=== PATIENT | female | born 1995 | race Caucasian/White ===

== ENCOUNTER 2019-07-19 10:30 | Emergency (ER) | payer OTHER ==
[~2019-07-19] VITALS: Ht 167.6 cm; Wt 54.8 kg
[2019-07-19 10:33] VITALS: BP 127/100
--- NOTE | 2019-07-19 10:55 | NUR ---
Assumed care of patient. C/O SI. Reports recetn divorce. Denies plan or method. Denies HI. Flat affect. Urine sent to lab. One belonging bag locked up at security. Sitter at bedside. Will continue to monitor.
[2019-07-19] MEDS ORDERED: MYLAN PO (10:58)
[2019-07-19 11:36] LABS: ALBUMIN 4.1 g/dL (3.4-5.0); ANION GAP 9 mmol/L (5-15); CALCIUM 8.9 mg/dL (8.5-10.1); CHLORIDE 108 mmol/L (98-107); CREATININE 0.86 mg/dL (0.55-1.02)
[2019-07-19 11:44] LABS: AMPHETAMINE SCREEN, URINE Negative (Negative); BARBITURATE SCREEN, URINE Negative (Negative); BENZODIAZEPINE SCREEN, URINE Negative (Negative); CANNABINOID SCREEN, URINE Negative (Negative); COCAINE SCREEN, URINE Negative (Negative); METHADONE SCREEN, URINE Negative (Negative); OPIATE SCREEN, URINE Negative (Negative)
[2019-07-19 11:44] LABS: SALICYLATE LEVEL < 1.7 mg/dL (2.8-20.0)
--- NOTE | 2019-07-19 11:53 | NUR ---
Patient resting in gurney. Sitter at bedside. Will continue to monitor.
[2019-07-19 12:03] LABS: BASOPHILS # (AUTO) 0.06 x10^3/uL (0-0.1); BASOPHILS % (AUTO) 1 % (0-1); EOSINOPHILS # (AUTO) 0.01 x10^3/uL (0-0.4); EOSINOPHILS % (AUTO) 0 % (1-7); LYMPHOCYTES % (AUTO) 18 % (22-44); MD NO; MEAN CORPUSCULAR HEMOGLOBIN 31.6 pg (27.0-34.8); MEAN CORPUSCULAR HGB CONC 34.3 g/dL (32.4-35.8); MEAN CORPUSCULAR VOLUME 91.9 fL (80-100); MEAN PLATELET VOLUME 8.3 fL (7.4-10.4); MONOCYTES # (AUTO) 0.25 x10^3/uL (0.2-0.8); MONOCYTES % (AUTO) 4 % (2-9); NEUTROPHILS # (AUTO) 4.29 x10^3/uL (1.8-6.8); NEUTROPHILS % (AUTO) 77 % (42-75); PLATELET COUNT 288 x10^3/uL (130-400); RED BLOOD COUNT 4.76 x10^6/uL (3.82-5.3); RED CELL DISTRIBUTION WIDTH 12.6 % (9.6-15.2)
[2019-07-19] MEDS ORDERED: POTASSIUM CHLORIDE 20 MEQ PACKET PO ONE (12:30)
--- NOTE | 2019-07-19 12:47 | NUR ---
REPORT RECEIVED FROM ESTEPHANIA PACHECO.
--- NOTE | 2019-07-19 12:48 | NUR ---
MEAL TRAY ORDERED AT THIS TIME.
--- NOTE | 2019-07-19 12:57 | NUR ---
MEDICATION ORDERED FROM PHARMACY AT THIS TIME.
--- NOTE | 2019-07-19 12:57 | NUR ---
MEAL TRAY PROVIDED AT THIS TIME.
--- NOTE | 2019-07-19 13:38 | NUR ---
PT MEDICATED PER EMAR. PT TOLERATED WELL.
--- NOTE | 2019-07-19 14:54 | NUR ---
PT SLEEPING IN BED. RESPS EVEN AND UNLABORED. ROOM REMAINS SECURE. SITTER MONITORING FROM HALLWAY FOR SAFETY.
--- NOTE | 2019-07-19 16:03 | NUR ---
PT WATCHING TV. RESPS EVEN AND UNLABORED. ROOM REMAINS SECURE. SITTER MONITORING FROM HALLWAY FOR SAFETY.
--- NOTE | 2019-07-19 18:00 | NUR ---
REPORT GIVEN TO WASHINGTON PACHECO. ALL QUESTIONS ANSWERED.
== END 2019-07-19 18:22 ==
LOC: EDSEX 10:30 → ED 13:48
DX: F32.2 Major depressive disorder, single episode, severe without psychotic features (principal); E87.6 Hypokalemia
CPT/HCPCS: 36415; 80048; 80307; 82040; 84703; 85025; 99285

== ENCOUNTER 2019-07-19 17:11 | Inpatient (IN) | payer OTHER ==
[~2019-07-19] VITALS: Ht 167.6 cm; Wt 53.7 kg
[~2019-07-19 17:11] MED LIST: MYLAN PO
[2019-07-19] MEDS ORDERED: POLYETHYLENE GLYCOL 17 GM PACKET PO PRN (18:30)
[2019-07-19] MEDS ORDERED: ONDANSETRON ODT 4 MG PO PRN (18:30)
[2019-07-19] MEDS ORDERED: DOCUSATE 100 MG CAPSULE PO PRN (18:30)
[2019-07-19] MEDS ORDERED: BISACODYL 10 MG SUPP PR PRN (18:30)
[2019-07-19] MEDS ORDERED: MELATONIN 3 MG TABLET PO PRN (18:30)
[2019-07-19] MEDS ORDERED: HYDROXYZINE PAMOATE 50MG CAP PO PRN (18:30)
[2019-07-19] MEDS ORDERED: PLEASE ENTER HEIGHT AND WEIGHT MC SCH (19:00)
[2019-07-19 19:30] LABS: ANION GAP 10 mmol/L (5-15); BASOPHILS # (AUTO) 0.11 x10^3/uL (0-0.1); BASOPHILS % (AUTO) 2 % (0-1); CHLORIDE 109 mmol/L (98-107); CHOLESTEROL, TOTAL 153 mg/dL (140-239); EOSINOPHILS # (AUTO) 0.07 x10^3/uL (0-0.4); EOSINOPHILS % (AUTO) 1 % (1-7); LYMPHOCYTES # (AUTO) 1.93 x10^3/uL (1-3.4); LYMPHOCYTES % (AUTO) 29 % (22-44); MEAN CORPUSCULAR HEMOGLOBIN 31.2 pg (27.0-34.8); MEAN CORPUSCULAR HGB CONC 33.9 g/dL (32.4-35.8); MEAN CORPUSCULAR VOLUME 91.9 fL (80-100); MEAN PLATELET VOLUME 8.3 fL (7.4-10.4); MONOCYTES # (AUTO) 0.41 x10^3/uL (0.2-0.8); MONOCYTES % (AUTO) 6 % (2-9); NEUTROPHILS # (AUTO) 4.16 x10^3/uL (1.8-6.8); NEUTROPHILS % (AUTO) 62 % (42-75); PLATELET COUNT 307 x10^3/uL (130-400); RED BLOOD COUNT 4.71 x10^6/uL (3.82-5.3); RED CELL DISTRIBUTION WIDTH 12.7 % (9.6-15.2); TRIGLYCERIDES 145 mg/dL (50-200); VLDL CHOLESTEROL 29 mg/dL (0-25)
[2019-07-19 19:40] VITALS: BP 124/90
[2019-07-19 19:56] LABS: CHOL/HDL RATIO 3.6; FREE T4 (FREE THYROXINE) 1.75 ng/dL (0.76-1.46); HDL CHOL % 27 % (28-40); HDL CHOLESTEROL (DIRECT) 42 mg/dL (40-60); LDL CHOLESTEROL,CALCULATED 82 mg/dL (54-169)
[2019-07-19 20:00] LABS: MD NO
[2019-07-19 21:12] VITALS: BP 124/85
[2019-07-20 07:22] VITALS: BP 113/78
[2019-07-20] MEDS: ACETAMINOPHEN 325 MG TABLET PO PRN (09:12)
[2019-07-20] MEDS ORDERED: BLISOVI FE PO SCH (10:30)
[2019-07-20] MEDS: FLUOXETINE 10 MG CAP PO SCH (14:25)
[2019-07-20 19:26] VITALS: BP 106/76
[2019-07-21 06:28] LABS: FREE T4 (FREE THYROXINE) 1.71 ng/dL (0.76-1.46)
[2019-07-21 07:31] VITALS: BP 111/79
[2019-07-21] MEDS: [UNRECOGNIZED DRUG - OTHER] HOMEMEDPO SCH (08:12)
[2019-07-21] MEDS: FLUOXETINE 10 MG CAP PO SCH (08:12)
[2019-07-21] MEDS: ACETAMINOPHEN 325 MG TABLET PO PRN ×2 (08:12→14:20)
[2019-07-21 19:55] VITALS: BP 118/84
[2019-07-22 07:49] VITALS: BP 112/75
[2019-07-22] MEDS: ACETAMINOPHEN 325 MG TABLET PO PRN (08:10)
[2019-07-22] MEDS: FLUOXETINE 10 MG CAP PO SCH (08:10)
[2019-07-22] MEDS: [UNRECOGNIZED DRUG - OTHER] HOMEMEDPO SCH (08:11)
[2019-07-22 19:00] VITALS: BP 116/82
[2019-07-23 07:40] VITALS: BP 104/71
[2019-07-23] MEDS: [UNRECOGNIZED DRUG - OTHER] HOMEMEDPO SCH (09:00)
[2019-07-23] MEDS: FLUOXETINE 10 MG CAP PO SCH (09:23)
[2019-07-23] MEDS ORDERED: FLUOXETINE 10 MG CAP PO ONE (13:30)
[2019-07-23 19:43] VITALS: BP 109/74
[2019-07-24 07:30] VITALS: BP 113/79
[2019-07-24] MEDS: FLUOXETINE HCL 20 MG CAPSULE PO SCH (08:36)
[2019-07-24] MEDS: [UNRECOGNIZED DRUG - OTHER] HOMEMEDPO SCH (08:36)
[2019-07-24 19:25] VITALS: BP 113/81
[2019-07-25 07:06] VITALS: BP 109/74
[2019-07-25] MEDS: FLUOXETINE HCL 20 MG CAPSULE PO SCH (08:13)
[2019-07-25] MEDS: [UNRECOGNIZED DRUG - OTHER] HOMEMEDPO SCH (08:13)
[2019-07-25] MEDS ORDERED: FLUOXETINE HCL 20 MG CAPSULE PO SCH (09:00)
[2019-07-25] MEDS ORDERED: MELA3TAB56 PO (12:39)
[2019-07-25] MEDS ORDERED: HYDR50CA2 PO (12:39)
[2019-07-25] MEDS ORDERED: FLUO20CA8 PO (12:39)
== END 2019-07-25 13:11 | disposition home or self-care (01) | DRG 885 ==
LOC: 3E 18:38
PROVIDERS: ADMIT Psychiatry & Neurology Psychosomatic Medicine; ATTEND Psychiatry & Neurology Psychosomatic Medicine
DX: F33.2 Major depressive disorder, recurrent severe without psychotic features (principal); R45.851 Suicidal ideations; N80.9 Endometriosis, unspecified; K59.00 Constipation, unspecified; G47.00 Insomnia, unspecified; F41.9 Anxiety disorder, unspecified; Z80.8 Family history of malignant neoplasm of other organs or systems; Z82.0 Family history of epilepsy and other diseases of the nervous system; Z79.899 Other long term (current) drug therapy
CPT/HCPCS: 36415; 80048; 80061; 82140; 82607; 84439; 84443; 84703; 85025

== ENCOUNTER 2021-01-04 07:55 | Day surgery (SDC) | payer OTHER ==
[2021-01-01 13:31] LABS: BASOPHILS % (AUTO) 2 % (0-1); EOSINOPHILS % (AUTO) 2 % (1-7); LYMPHOCYTES % (AUTO) 27 % (22-44); MEAN CORPUSCULAR HEMOGLOBIN 31.2 pg (27.0-34.8); MEAN PLATELET VOLUME 7.4 fL (7.4-10.4); MONOCYTES % (AUTO) 5 % (2-9); NEUTROPHILS % (AUTO) 64 % (42-75); PLATELET COUNT 318 x10^3/uL (130-400); RED BLOOD COUNT 4.84 x10^6/uL (3.82-5.3); RED CELL DISTRIBUTION WIDTH 12.5 % (9.6-15.2)
[2021-01-01 13:33] LABS: MD NO
[2021-01-01 13:40] LABS: ALANINE AMINOTRANSFERASE 14 U/L (12-78); ALBUMIN 4.1 g/dL (3.4-5.0); ANION GAP 4 mmol/L (5-15); CALCIUM 9.1 mg/dL (8.5-10.1); CHLORIDE 108 mmol/L (98-107); CREATININE 0.72 mg/dL (0.55-1.02)
[2021-01-01 13:43] LABS: MICROSCOPIC AUTO
[2021-01-01 13:45] LABS: ALKALINE PHOSPHATASE 77 U/L (45-117); BILIRUBIN,TOTAL 0.6 mg/dL (0.2-1.0); TOTAL PROTEIN 7.7 g/dL (6.4-8.2)
[~2021-01-04] VITALS: Ht 167.6 cm; Wt 69.8 kg
[~2021-01-04 07:55] MED LIST changes: +BUPIVACAINE/PF 0.25% ONE; +EPINEPHRINE 1 MG/ML, 1ML ONE; +FLUO20CA23 PO; +HYDR50CA2 PO; +MELA3TAB31 PO; +METHYLENE BLUE 50 MG/10 ML AMP ONE
[2021-01-04 08:33] VITALS: BP 122/88
[2021-01-04] MEDS ORDERED: LIDOCAINE-MPF 1%, 2ML ONE (08:56)
[2021-01-04] MEDS ORDERED: CHLORHEXIDINE 15 ML UDC PO ONE (09:00)
[2021-01-04] MEDS ORDERED: LACTATED RINGERS 1,000 ML IV SCH (09:00)
[2021-01-04] MEDS ORDERED: INDIGO CARMINE 0.8%, 5ML ONE (09:34)
[2021-01-04] MEDS ORDERED: FENTANYL PF 250 MCG/5ML ONE (09:35)
[2021-01-04] MEDS ORDERED: MIDAZOLAM 1 MG/ML, 2ML ONE (09:35)
[2021-01-04] MEDS ORDERED: SUCCINYLCHOLINE 20 MG/ML, 10ML ONE (09:36)
[2021-01-04] MEDS ORDERED: DEXAMETHASONE 4 MG/ML, 1ML ONE (09:36)
[2021-01-04] MEDS ORDERED: CEFAZOLIN 1,000 MG ONE (09:36)
[2021-01-04] MEDS ORDERED: PROPOFOL 10 MG/ML, 20ML ONE (09:36)
[2021-01-04] MEDS ORDERED: ROCURONIUM 10MG/ML,5ML ONE (09:36)
[2021-01-04] MEDS ORDERED: INDIGO CARMINE 0.8%, 5ML IV ONE (10:00)
[2021-01-04] MEDS ORDERED: BUPIVACAINE/PF-EPI 0.25% 1:200K INFIL ONE (10:00)
[2021-01-04] MEDS ORDERED: ONDANSETRON 2MG/ML, 2ML ONE ×2 (10:53)
[2021-01-04] MEDS ORDERED: HYDROmorphone 1 MG/ML, 1ML INJ ONE (11:21)
[2021-01-04] MEDS ORDERED: FENTANYL PF 100 MCG/2ML ONE (11:21)
[2021-01-04] MEDS ORDERED: OXYcodone 5 MG/5 ML ORAL.SOL UDC ONE (11:22)
[2021-01-04] MEDS: FENTANYL PF 100 MCG/2ML IV PRN ×2 (11:24→11:29)
[2021-01-04] MEDS ORDERED: ACETAMINOPHEN 650 MG/20.3 ML UDC ONE (11:29)
[2021-01-04] MEDS ORDERED: OXYcodone 5 MG/5 ML ORAL.SOL UDC PO PRN (11:30)
[2021-01-04] MEDS ORDERED: LABETALOL 5MG/ML, 20ML IV PRN (11:30)
[2021-01-04] MEDS ORDERED: ACETAMINOPHEN 325 MG TABLET PO PRN (11:30)
[2021-01-04] MEDS ORDERED: ONDANSETRON 2MG/ML, 2ML IVPush PRN (11:30)
[2021-01-04] MEDS ORDERED: DIAZEPAM 5 MG/ML, 2ML IVPush PRN (11:30)
[2021-01-04] MEDS ORDERED: hydrALAzine 20 MG/ML, 1ML IV PRN (11:30)
[2021-01-04] MEDS ORDERED: EPHEDRINE 50 MG/ML, 1ML IVPush PRN (11:30)
[2021-01-04] MEDS ORDERED: MEPERIDINE/PF 25MG/0.5ML IVPush PRN (11:30)
[2021-01-04] MEDS ORDERED: PROMETHAZINE 12.5 MG SUPP PR PRN (11:30)
[2021-01-04] MEDS ORDERED: PROMETHAZINE 25 MG/ML, 1ML IVPush PRN (11:30)
[2021-01-04] MEDS ORDERED: DIPHENHYDRAMINE 50 MG/ML, 1ML IVPush PRN ×2 (11:30)
[2021-01-04] MEDS ORDERED: HYDROmorphone 1 MG/ML, 1ML INJ IVPush PRN (11:30)
[2021-01-04] MEDS ORDERED: ALBUTEROL SULFATE 2.5 MG/3 ML NPPB PRN (11:30)
[2021-01-04] MEDS ORDERED: MIDAZOLAM 1 MG/ML, 2ML IV PRN (11:30)
== END 2021-01-04 14:55 | disposition home or self-care (01) ==
LOC: OUT 07:55
PROVIDERS: ATTEND Obstetrics & Gynecology Gynecology
DX: N80.3 Endometriosis of pelvic peritoneum (principal); F32.9 Major depressive disorder, single episode, unspecified; Z20.822 Contact with and (suspected) exposure to COVID-19; Z79.899 Other long term (current) drug therapy
CPT/HCPCS: 36415; 58350; 58662; 80053; 81001; 84702; 85025; 86850; 86900; 87086; 88305; J0171; J0330; J0690; J1100; J1170; J2250; J2405; J2704; J3010; J7120; S2900; U0003; Q9968